=== PATIENT | male | born 1980 | race Caucasian/White ===

== ENCOUNTER 2017-09-13 20:40 | Emergency (ER) | payer SELFPAY ==
[~2017-09-13] VITALS: Ht 177.8 cm; Wt 81.8 kg
[2017-09-13] MEDS ORDERED: METH40TA PO (20:53)
[2017-09-13] MEDS ORDERED: SUBO8MIS SL (20:53)
[2017-09-13] MEDS ORDERED: XANA2TAB2 PO (20:53)
[2017-09-13 20:54] VITALS: BP 116/82; PULSE 85; RESP 18; TEMP 99.4; O2SAT 95
--- NOTE | 2017-09-13 21:13 | PD ---
HPI Chief Complaint: Seizure Time Seen by Provider: 20:59 Travel History International Travel<30 days: No Contact w/Intl Traveler<30days: No Traveled to known affect area: No History of Present Illness HPI This patient is brought in by paramedics for seizure. This was witnessed by his mother. He was at home and reported that he was feeling dizzy and then started having tonic-clonic shaking of the extremities. He did fall to the ground but other than a minor abrasion on his left cheek has no complaint from injury. Denies headache or neck pain. Duration was couple of minutes. He has had one seizure before. Patient chronically takes methadone and a lot of Xanax. He takes between 2 and 4 mg daily of Xanax for many years for anxiety. He recently came back from visiting [place] and had been out of his Xanax and has not had any for the last 3 days. This happened once before 1 year ago and he had a negative brain CT at that time. Severity is moderate. However he feels improved now. Symptoms exacerbated by running out of Xanax. No alleviating factors. No history of IV drug abuse. He used to snort narcotics but no longer does PFSH Past Medical History Diminished Hearing: No Immunizations Current: No Seizures: Yes Tetanus Vaccination: Unknown Influenza Vaccination: No Past Surgical History Surgical History: No Previous Surgery Social History Alcohol Use: Yes (RARELY) Tobacco Use: Yes (1 PPD) Substance Use: Yes (PAST METH USE) Allergies-Medications (Allergen,Severity, Reaction): Coded Allergies: No Known Allergies (Unverified , 09/13/17) Reported Meds & Prescriptions Reported Meds & Active Scripts Active Reported Methadone (Methadone HCl) 40 Mg Tab 100 Mg PO DAILY Xanax (Alprazolam) 2 Mg Tab 2 Mg PO Q8H PRN Suboxone Sublingual Film (Buprenorphine-Naloxone Sublingual Film) 8-2 Mg Film 1 Film SL Unique ID number required: Review of Systems General / Constitutional: No: Fever Eyes: No: Visual changes HENT: No: Headaches Cardiovascular: No: Chest Pain or Discomfort Respiratory: No: Shortness of Breath Gastrointestinal: No: Abdominal Pain Genitourinary: No: Dysuria Musculoskeletal: No: Pain Skin: No Rash Neurologic: Positive: Seizures, No: Weakness Psychiatric: Positive: Anxiety, Substance Abuse, No: Depression Endocrine: No: Polydipsia Hematologic/Lymphatic: No: Easy Bruising Physical Exam Narrative GENERAL: Well-nourished, well-developed patient in no apparent distress. SKIN: Focused skin assessment reveals no rash and nodules. Skin is Warm and dry. HEAD: Tiny abrasion on the left cheek without tenderness. Normocephalic. EYES: Pupils equal and round. No scleral icterus. No injection or drainage. ENT: No nasal bleeding or discharge. Mucous membranes pink and moist. No tongue injury NECK: Trachea midline. No JVD. No midline tenderness CARDIOVASCULAR: Regular rate and rhythm. No murmur appreciated. RESPIRATORY: No accessory muscle use. Clear to auscultation. Breath sounds equal bilaterally. GASTROINTESTINAL: Abdomen soft, non-tender, nondistended. Hepatic and splenic margins not palpable. MUSCULOSKELETAL: No obvious deformities. No clubbing. No cyanosis. No edema. NEUROLOGICAL: Awake and alert. No obvious cranial nerve deficits. Motor grossly within normal limits. Normal speech. PSYCHIATRIC: Appropriate mood and affect; insight and judgment reduced Data Data Last Documented VS Vital Signs Date Time Temp Pulse Resp B/P (MAP) Pulse Ox O2 Delivery O2 Flow Rate FiO2 09/13/17 21:38 76 18 140/79 (99) 96 Room Air 09/13/17 20:54 99.4 Orders Orders Blood Glucose (09/13/17 21:04) Oximetry (09/13/17 21:04) Iv Access Insert/Monitor (09/13/17 21:04) Ecg Monitoring (09/13/17 21:04) Oxygen Administration (09/13/17 21:04) Basic Metabolic Panel (Bmp) (09/13/17 21:04) Lorazepam Inj (Ativan Inj) (09/13/17 21:15) Labs Laboratory Tests Test 09/13/17 21:27 Blood Urea Nitrogen 17 MG/DL Creatinine 1.00 MG/DL Random Glucose 103 MG/DL Calcium Level 8.7 MG/DL Sodium Level 141 MEQ/L Potassium Level 4.1 MEQ/L Chloride Level 108 MEQ/L Carbon Dioxide Level 28.5 MEQ/L Anion Gap 5 MEQ/L Estimat Glomerular Filtration Rate 86 ML/MIN [facility] Medical Decision Making Medical Screen Exam Complete: Yes Emergency Medical Condition: Yes Medical Record Reviewed: Yes Differential Diagnosis Benzodiazepine withdrawal seizure, narcotic withdrawal seizure, electrolyte abnormality Narrative Course I have reviewed the patient's electronic medical record. IV placed I gave him 1 mg IV Ativan No neurologic deficits are noted Presentation is consistent with benzodiazepine withdrawal seizure I do not see any indication for a brain imaging Metabolic profile is normal We will observe him for a while with frequent rechecks. Patient is now asymptomatic. No recurrent events. He does not want to stay. I think he will do okay as an outpatient. I am writing a few Librium. Discussed with him and mother he should get a primary care physician and they should discuss a long-term wean off of Xanax and methadone Diagnosis Primary Impression: Benzodiazepine withdrawal Qualified Codes: F13.239 - Sedative, hypnotic or anxiolytic dependence with withdrawal, unspecified Additional Impression: Seizure Additional Instructions: The patient was advised to follow up with their physician and return if they worsen. Med/Other Pt SpecificInfo: Prescription(s) given Disposition: 01 DISCHARGE HOME Condition: Stable He Leggett MD September 13, 2017 21:13
[2017-09-13] MEDS ORDERED: LORazepam 2 MG/ML VIAL IV PUSH ONE (21:15)
[2017-09-13 21:38] VITALS: BP 140/79; PULSE 76; RESP 18; O2SAT 96
[2017-09-13 21:42] LABS: BICARBONATE 28.5 MEQ/L (21.0-32.0); CALCIUM 8.7 MG/DL (8.5-10.1)
[2017-09-13 22:39] VITALS: BP 137/69
== END 2017-09-13 22:52 | disposition home or self-care (01) ==
LOC: PHED 20:40
DX: F13.239 Sedative, hypnotic or anxiolytic dependence with withdrawal, unspecified (principal); R56.9 Unspecified convulsions; R42 Dizziness and giddiness; F17.200 Nicotine dependence, unspecified, uncomplicated
CPT/HCPCS: 80048; 96374; 99284; J2060